=== PATIENT | male | born 1955 | race African-American/Black ===

== ENCOUNTER 2022-03-20 16:48 | Emergency (ER) | payer MEDICARE, SELFPAY ==
--- NOTE | 2022-03-20 17:15 | ED_ITS ---
HPI - General Adult General: Chief complaint: General Medical Stated complaint: [place] of [place], needs med refill Time Seen by Provider: 03/20/22 17:13 History of Present Illness: 66-year-old male patient comes in today with running out of his high cholesterol medication. Patient did not realize he was so low on his medication. 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 Patient is alert and oriented. Patient appears no acute distress. Patient denies any other concerns. Associated symptoms: Deny chest pain or dyspnea Review of Systems General: Reports: 10 or more systems reviewed and unremarkable except in HPI and below Card: Denies: chest pain Resp: Denies: dyspnea Physical Exam Const: COMMON NORMALS: alert HENMT: COMMON NORMALS: normocephalic HEAD & SCALP: normocephalic Neck/C-Spine: GENERAL: Yes normal visual inspection Resp: COMMON NORMALS: normal respiratory effort Cardio: COMMON NORMALS: regular rate RATE: regular rate Extremity: COMMON NORMALS: full ROM Neuro: SENSORIUM/ORIENTATION: Yes alert Skin: COMMON NORMALS: no rashes or lesions noted GENERAL SKIN EXAM: no rashes or lesions noted Course Vital Signs: Vital signs: Vital Signs Temperature 98.4 F 03/20/22 17:21 Pulse Rate 67 03/20/22 17:21 Respiratory Rate 16 03/20/22 17:21 Blood Pressure 158/74 03/20/22 17:21 Pulse Oximetry 99 03/20/22 17:21 [facility] - General Adult Medical Decision Making 66-year-old male patient comes in today after running out of his cholestyramine. Patient takes his medication for high lipids. On exam patient is unremarkable. Vital signs are normal. Differential diagnosis out of medication, elevated cholesterol, diabetes. Patient denies diabetes but does report being without his medication and his cholesterol being elevated. Patient also takes medication for blood pressure but does not need refills for these 2 medications. Patient's medication was refilled for 1 month with recommendations to follow-up with primary care for further instructions. Discharge Plan Discharge Patient Disposition: Home Clinical Impression: Hyperlipidemia Condition: Stable Prescriptions: New cholestyramine (with sugar) 4 gram powder in packet 4 g PO BID Qty: 60 0RF Rx Instructions: administer w/meal; avoid other meds within 1hr before or 4-6hr after dose Discharge Orders: Discharge ED (Routine); Ordered 03/20/22 Ordered By: Jose Lopez Discharge Diet: Usual diet Discharge Activity: Increase activity as tolerated Patient Instructions: Hyperlipidemia (DC) Coding Level of Care Code ED [employer] for [employer]
[2022-03-20 17:21] VITALS: BP 158/74; PULSE 67; RESP 16; TEMP 36.9; O2SAT 99; BMI 25.7
== END 2022-03-20 17:28 | disposition home or self-care (01) ==
PROVIDERS: Emergency Provider Nurse Practitioner Family
DX: Z76.0 Encounter for issue of repeat prescription (principal); E78.5 Hyperlipidemia, unspecified
CPT/HCPCS: 99283